=== PATIENT | male | born 1985 | race African-American/Black ===

== ENCOUNTER 2021-09-19 20:21 | Emergency (ER) | payer OTHER, SELFPAY ==
--- NOTE | ~2021-09-19 | XR_ITS ---
EXAMINATION: XR wrist RT min 3V DATE: 09/19/2021 22:18 INDICATION: Right wrist pain post a forklift accident TECHNIQUE: Posteroanterior, navicular, oblique, and lateral views of the right wrist were obtained. COMPARISON: none FINDINGS: 2 mm ulnar minus variance. Alignment is otherwise normal. No fracture. Joint spaces are normal. Soft tissues are unremarkable. IMPRESSION: 1. No acute osseous abnormality. Reviewed, dictated and finalized at [facility].
--- NOTE | ~2021-09-19 | XR_ITS ---
EXAMINATION: XR shoulder LT min 2V DATE: 09/19/2021 22:16 INDICATION: Generalized left humeral pain and forearm pain following forklift accident. TECHNIQUE: 1. AP internally and externally rotated, AP oblique externally rotated and transscapular Y views of t he left shoulder were obtained. 2. AP and lateral views of the left humerus were obtained. 3. AP and lateral views of the left forearm were obtained. COMPARISON: None FINDINGS: Normal alignment of the left upper extremity from the shoulder through the wrist joint. No fracture.s paces appear normal throughout. No left elbow joint effusion. Small round chronic corticated ossicle at the dorsal aspect of the carpus. Soft tissues are unremarkable. Visualized portions of the left laura ng are clear. IMPRESSION: No acute osseous abnormality in the left upper extremity from the shoulder through the wrist. Reviewed, dictated and finalized at location [facility]. IMPRESSION: No acute osseous abnormality in the left upper extremity from the shoulder thro ugh the wrist.
--- NOTE | ~2021-09-19 | XR_ITS ---
EXAMINATION: XR humerus LT, XR forearm LT 2V DATE: 09/19/2021 22:16 INDICATION: Generalized left humeral pain and forearm pain following forklift accident. TECHNIQUE: 1. AP internally and externally rotated, AP oblique externally rotated and transscapular Y views of t he left shoulder were obtained. 2. AP and lateral views of the left humerus were obtained. 3. AP and lateral views of the left forearm were obtained. COMPARISON: None FINDINGS: Normal alignment of the left upper extremity from the shoulder through the wrist joint. No fracture. Joint spaces appear normal throughout. No left elbow joint effusion. Small round chronic corticated o ssicle at the dorsal aspect of the carpus. Soft tissues are unremarkable. Visualized portions of the left lung are clear. IMPRESSION: No acute osseous abnormality in the left upper extremity from the shoulder through the wrist. Reviewed, dictated and finalized at location [facility]. IMPRESSION: No acute osseous abnormality in the left upper extremity from the shoulder thro ugh the wrist.
--- NOTE | ~2021-09-19 | CT_ITS ---
EXAMINATION: CT cervical spine wo con DATE: 09/19/2021 22:24 INDICATION: Head injury. Headache. Midline neck pain. TECHNIQUE: Computed tomography (CT) of the cervical spine was performed without intravenous contrast. Automated exposure control and iterative reconstruction technique were employed. Exam dose: 457.46 mGy-cm total exam DLP. COMPARISON: None FINDINGS: There is reversal cervical curvature which may be due to muscle spasm and/or positioning. C1 and C2 are normally aligned and the odontoid process is intact. No fracture or dislocation, locked facet or prevertebral soft tissue swelling. IMPRESSION: No fracture or dislocation or locked facet Reversal cervical curvature which may be due to muscle spasm Reviewed, dictated and finalized at [facility]. Reviewed, dictated and finalized at location [facility].
--- NOTE | ~2021-09-19 | CT_ITS ---
EXAMINATION: CT brain wo con DATE: 09/19/2021 22:24 INDICATION: Head injury. Headache. TECHNIQUE: Computed tomography (CT) of the head was performed without intravenous contrast. The mA wa s adjusted according to patient size. Iterative reconstruction technique was employed. Exam dose: 60 5.33 mGy-cm total exam DLP. COMPARISON: None FINDINGS: No intracranial mass lesion or hemorrhage or cerebrovascular accident. No midline shift or mass effect. Normal ventricular size. Normal jordan-white matter differentiation. No subdural or epidur al hematoma. No fracture or bone destruction of the cranial vault. Mastoid air cells and included paranasal sinuse s are unremarkable. IMPRESSION: Negative Reviewed, dictated and finalized at [facility]. Reviewed, dictated and finalized at location [facility]. IMPRESSION: Negative
[2021-09-19 20:40] VITALS: BP 116/75; PULSE 85; RESP 18; TEMP 36.4; O2SAT 100
--- NOTE | 2021-09-19 21:51 | ED.BACK ---
HPI - Back Pain/Injury General Chief Complaint: Back Pain/Injury Stated Complaint: back pain Time Seen by Provider: 09/19/21 21:30 History of Present Illness HPI Narrative: Patient is a 35-year-old male with a history of lumbar stenosis here for evaluation after an accident at work today. 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 Notes that he has had left shoulder pain, left forearm pain, right wrist pain and upper back pain since the accident. He has not had any medication at home. He has been walking and denies any weakness in his legs. Does note some intermittent paresthesias that radiate down his left leg. He states that he did was a little bit of urine when the accident happened, but he denies any retention or incontinence after the accident. No incontinence or retention of bowel, saddle anesthesia. Related Data Allergies Allergy/AdvReac Type Severity Reaction Status Date / Time No Known Allergies Allergy Unverified 09/23/17 22:57 Review of Systems Review of Systems: Gen: Denies fevers or chills Eyes: Denies eye pain or visual change ENT: Denies congestion Respiratory: Denies shortness of breath or cough CV: Denies chest pain or palpitations GI: Denies abdominal pain nausea, emesis or diarrhea denies burning, urgency, frequency or hematuria Musculoskeletal: Reports back pain, left shoulder and arm pain, right wrist pain Neuro: Denies numbness, tingling, weakness or focal weakness Skin: Denies rash Except as documented, all other systems reviewed and negative Exam Narrative: APPEARANCE: Well appearing, no pain in distress, well-nourished. Head: Normocephalic and atraumatic. EYES: PERRLA/EOMI, conjunctivae clear NOSE: No nasal drainage EARS: External ear normal in appearance THROAT: Oropharynx is clear. Mucous membranes are moist. NECK: tender to palpation along midline of c6 and c7. RESPIRATORY: Airway patent, respirations nonlabored. Clear to auscultation bilaterally, no rales, rhonchi, wheezing. CARDIOVASCULAR: 2+ radial pulses. Regular rate and rhythm without murmurs, rubs, or gallops. ABDOMINAL: Normoactive bowel sounds. Soft, nontender, nondistended. No rebound tenderness or guarding. MUSCULOSKELETAL: no midline tenderness along t or l spine. paraspinal muscle tenderness in low back. straight leg raise positive on the right. Tender to palpation along left humeral head, left forearm, right wrist along the ulnar styloid process. There is a palpable bony prominence on the dorsal aspect of the right wrist. No anatomic snuff box tenderness on the right. Full range of motion in bilateral hands. Full range of motion of bilateral lower extremities. : exam performed with activity therapist taz, perianal sensation intact, good rectal tone NEURO: No weakness in lower extremities. Normal speech. No focal neurologic deficits. SKIN: Skin is warm and dry. No rashes. PSYCHIATRIC: Normal affect/mood. Course Vital Signs Vital signs: Vital Signs Temperature 97.6 F 09/19/21 20:40 Pulse Rate 85 09/19/21 20:40 Respiratory Rate 18 09/19/21 20:40 Blood Pressure 116/75 09/19/21 20:40 Pulse Oximetry 100 09/19/21 20:40 Oxygen Delivery Room Air 09/19/21 20:40 Temperature 97.6 F 09/19/21 20:40 Pulse Rate 90 09/20/21 00:38 Respiratory Rate 20 09/20/21 00:38 Blood Pressure 148/88 H 09/20/21 00:38 Pulse Oximetry 100 09/20/21 00:38 Oxygen Delivery Room Air 09/19/21 20:40 MDM - Back Pain/Injury MDM Narrative Medical decision making narrative: 35-year-old male here for evaluation of left arm pain, neck pain and low back pain after an accident at work today where he was pushed against a wall temporarily. He is tender along the entire left upper extremity, lower C-spine, and had a tender palpable bony deformity along the dorsum of the right wri
--- NOTE | 2021-09-19 22:16 | PC.NURSE ---
Pt is at x-ray at this time
[2021-09-19] MEDS: ACETAMINOPHEN 500 MG TABLET 1000 MG PO (22:24)
[2021-09-19] MEDS: IBUPROFEN 400 MG TABLET 800 MG PO (22:24)
--- NOTE | 2021-09-19 22:57 | PC.NURSE ---
Post void residual 12
[2021-09-19 23:50] VITALS: BP 127/82; PULSE 94; RESP 18; O2SAT 100
[2021-09-20 00:38] VITALS: BP 148/88; PULSE 90; RESP 20; O2SAT 100
== END 2021-09-20 00:30 | disposition home or self-care (01) ==
PROVIDERS: Emergency Provider Emergency Medicine; PCP Internal Medicine
DX: S69.91XA Unspecified injury of right wrist, hand and finger(s), initial encounter (principal); M54.16 Radiculopathy, lumbar region; S59.912A Unspecified injury of left forearm, initial encounter; S49.92XA Unspecified injury of left shoulder and upper arm, initial encounter; S19.9XXA Unspecified injury of neck, initial encounter; W24.0XXA Contact with lifting devices, not elsewhere classified, initial encounter
CPT/HCPCS: 29125; 70450; 72125; 73030; 73060; 73090; 73110; 99284; A9270; L0140

== ENCOUNTER 2023-08-08 05:19 | Emergency (ER) | payer OTHER, SELFPAY ==
--- NOTE | ~2023-08-08 | CT_ITS ---
Clinical Indication: Chest pain CT Scan of the Chest with Contrast: Technique: Contiguous sections were acquired throughout the chest after intravenous administration of 100 cc of Omnipaque 350. Dose reduction technique was used on this scan by utilizing automated expos ure control and iterative reconstruction technique. The dose-length product (DLP) was 916.83 mGy-cm. Findings: There is no evidence of any significant mediastinal, hilar or axillary lymphadenopathy. There is no f illing defect in the pulmonary arterial tree to suggest pulmonary embolus. There is no evidence of ao rtic dissection or aneurysm. There is no evidence of pleural or pericardial effusion. The lungs are clear. No pulmonary nodules or infiltrates are noted. Images through the upper abdomen reveal no abnormalities. No fracture identified. Impression: No significant abnormality seen. Reviewed, dictated and finalized at [facility]. Impression: No significant abnormality seen.
[2023-08-08 05:23] VITALS: BP 141/86; PULSE 74; RESP 17; TEMP 36.6; O2SAT 99
[2023-08-08 05:28] VITALS: O2SAT 99
[2023-08-08 05:29] VITALS: PULSE 68
--- NOTE | 2023-08-08 05:32 | ED.CHESTPAIN ---
HPI - Chest Pain General Chief Complaint: Chest Pain Stated Complaint: fall yesterday Time Seen by Provider: 08/08/23 05:31 History of Present Illness HPI narrative: Patient is a 37-year-old male who presents to the emergency department this morning complaining of chest pain. Patient states that the pain started around 1:00 a.m. in the morning and he decided to wait it out. While patient was driving to work shortly prior to arrival he started to have the chest pain again. Patient admits that the pain is associated with deep inspiration and he does admit that he has been going through a lot as his mother of age 52 suddenly of a heart attack. 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 Patient states that yesterday he was removing the satellite from the roof of his home and accidentally fell and landed on some mulch. Patient states that he did brace himself for for the fall and states that he did not hit his head. He states that he was totally fine and walking and had no injuries or any pain after the. Patient states that he does not believe that the chest pain is related to the fall but thought that he should mention that he fell yesterday. No external evidence of trauma. Patient denies any cardiac history. No additional symptoms or concerns at this time. Related Data Allergies Allergy/AdvReac Type Severity Reaction Status Date / Time No Known Allergies Allergy Verified 08/08/23 05:30 Review of Systems Review of Systems: All systems are reviewed and are negative unless stated otherwise in the HPI. Exam Narrative: General: Alert, awake, afebrile, in no acute distress. HEENT: PERRL, no rhinorrhea, no post nasal drip, oropharynx clear. Cardiovascular: Regular rate and rhythm, no murmurs, rubs or gallops, no peripheral edema. Respiratory: Clear to auscultation bilaterally, no tachypnea, no wheezing, no rhonchi, no rubs, no respiratory distress. Abdomen: Soft, nontender, nondistended, no rebound, no guarding, no peritoneal signs. Musculoskeletal: No joint swelling or deformity, normal muscle tone. Back: No midline tenderness to palpation over the cervical, thoracic, or lumbar spine, no step-offs or deformities. Skin: No rashes or petechia, no signs of infection. Neurological: Alert and oriented to person, place, and time. Follows all commands. No focal deficits, speech is clear and fluent. Course Vital Signs Vital signs: Vital Signs Temperature 97.8 F 08/08/23 05:23 Pulse Rate 74 08/08/23 05:23 Respiratory Rate 17 08/08/23 05:23 Blood Pressure 141/86 H 08/08/23 05:23 Pulse Oximetry 99 08/08/23 05:23 Oxygen Delivery Room Air 08/08/23 05:23 Temperature 97.8 F 08/08/23 05:23 Pulse Rate 68 08/08/23 05:29 Respiratory Rate 17 08/08/23 05:23 Blood Pressure 141/86 H 08/08/23 05:23 Pulse Oximetry 99 08/08/23 05:28 Oxygen Delivery Room Air 08/08/23 05:28 MDM - Chest Pain MDM Narrative Medical decision making narrative: The patient was evaluated by myself in the emergency department. History is obtained from who is an independent historian and physical exam was performed. External medical records were reviewed at this time. IV was established and pertinent tests were ordered. EKG was obtained which revealed sinus rhythm at a rate of 66 beats per minute. No ST changes, T wave inversions or evidence of acute ischemia. EKG was independently interpreted by me and is currently pending official cardiology read. Laboratory results obtained revealing no acute process. Initial troponin negative. Imaging studies obtained included CT angiogram chest which was independently interpreted by me revealing no acute pr
[2023-08-08 05:37] LABS: Basophils Absolute Auto 0.1 K/mm3 (0.0-0.1); Basophils Percent Auto 0.6 % (0.2-1.2); Eosinophils Absolute Auto 0.2 K/mm3 (0-0.3); Eosinophils Percent Auto 1.6 % (0-4.4); Hematocrit 43.8 % (42.0-52.0); Hemoglobin 14.6 g/dL (14.0-18.0); Immature Granulocyte Absolute 0.05 K/mm3 (0.00-0.031); Immature Granulocyte Percent A 0.4 % (0-0.5); Lymphocytes Absolute Auto 4.19 K/mm3 (0.9-3.2); Lymphocytes Percent Auto 36.2 % (18.3-44.2); Mean Corpuscular HGB Conc 33.3 g/dl (32-36); Mean Corpuscular Hemoglobin 30.1 pg (26-34); Mean Corpuscular Volume 90.3 fl (80-100); Mean Platelet Volume 9.6 fl (7.4-10.4); Neutrophils Absolute Auto 6.1 K/mm3 (1.3-6.7); Neutrophils Percent Auto 52.2 % (45.5-73.1); Platelet Count Result 344 k/mm3 (150-375); Red Blood Count 4.85 M/mm3 (4.6-6.20); Red Cell Distribution Width 13.8 % (11.5-14.5); White Blood Count 11.6 K/mm3 (4.5-10.0)
[2023-08-08 05:46] LABS: Alanine Aminotransferase 26 U/L (6-50); Albumin Level 4.1 g/dL (3.5-5.1); Alkaline Phosphatase 119 U/L (38-126); Anion Gap 4 mmol/L (4-12); Aspartate Amino Transferase 24 U/L (17-59); Bilirubin,Total 0.4 mg/dL (0.2-1.3); Blood Urea Nitrogen 13 mg/dL (9-20); Calcium 8.8 mg/dL (8.4-10.2); Carbon Dioxide 28 mmol/L (22-30); Chloride 105 mmol/L (98-107); Estimated CRCL calculation 136 ml/min; Estimated Glomerular Filt Rate > 60; Glucose 100 mg/dL (65-110); Lipase 74 U/L (23-300); Potassium 3.9 mmol/L (3.4-5.0); Sodium 137 mmol/L (137-145)
[2023-08-08 05:50] LABS: Prothrombin Time 13.5 Seconds (11.1-14.7)
[2023-08-08 05:51] LABS: Partial Thromboplastin Time 29.8 Seconds (22.3-36.8)
[2023-08-08 05:58] LABS: Troponin I < 0.012 ng/mL (0.000-0.034)
[2023-08-08 06:31] VITALS: BP 134/86; PULSE 70; RESP 16; O2SAT 99
== END 2023-08-08 06:32 | disposition home or self-care (01) ==
PROVIDERS: Emergency Provider Emergency Medicine; PCP Internal Medicine
DX: R07.89 Other chest pain (principal)
CPT/HCPCS: 36415; 71275; 80053; 83690; 84484; 85025; 85610; 85730; 99284; Q9967